=== PATIENT | male | born 1990 | race Caucasian/White ===

== ENCOUNTER 2024-06-03 22:10 | Emergency (ER) | payer SELFPAY ==
[2024-06-03 22:14] VITALS: BP 158/105; PULSE 87; RESP 16; TEMP 36.7; O2SAT 98; BMI 20.7
--- NOTE | 2024-06-03 22:49 | XRR_ITS ---
PROCEDURE INFORMATION: Exam: XR Left Hand Exam date and time: 06/03/2024 10:54 PM Age: 34 years old Clinical indication: Injury or trauma; Other: Skill saw cut; Laceration; Hand and finger; Left; Ring finger and little finger; Additional info: Trauma/lac TECHNIQUE: Imaging protocol: Radiologic exam of the left hand. Views: 3 or more views. COMPARISON: No relevant prior studies available. FINDINGS: Bones/joints: Comminuted fracture of the distal phalanx of the 4th digit. Soft tissues: Soft tissue swelling of the tip of the 4th digit. 5 mm circular radiopaque foreign bodies overlies the ventral soft tissues of the hand near the 3/4 distal metacarpals. XR/XR hand LT min 3V* [id number] IMPRESSION: Comminuted fracture of the distal phalanx of the 4th digit.
[2024-06-03 23:19] VITALS: RESP 18
[2024-06-03] MEDS: tetanus-dipt-pertussis 0.5 mL SDV IM (23:19)
[2024-06-03] MEDS: morphine 4 mg/mL SDV 1 mL IM (23:19)
[2024-06-04] MEDS: sulfamethoxazole-trimeth DS 160-800 mg Tablet 1 TAB PO (00:31)
[2024-06-04] MEDS: lidocaine 2% INJ 20 mL INJECTION (00:35)
--- NOTE | 2024-06-04 00:52 | W.ED.WOUNDLC ---
HPI - Wound/Laceration General: Chief Complaint: Wound/Laceration Stated Complaint: left hand lac Time Seen by Provider: 06/03/24 22:28 Source: patient Mode of arrival: ambulatory Limitations: no limitations History of Present Illness: Patient is a 34-year-old male who presents to the emergency department complaining of a laceration to his left ring finger. This occurred while using a skill saw, states his tetanus is not up-to-date. He arrives with compression drainage, however upon removal it continues to bleed. No foreign body, but he states he believes he broke his finger. No distal sensory changes reported and he still has movement of that finger. No other injuries. Onset (ago): minute(s) Extremity Location: Left: hand (Ring finger) Place: home Patient tetanus UTD: No Context: accidental Associated symptoms: Reports no associated symptoms; Denies chills, fever(s), nausea or vomiting Treatments prior to arrival: bandage Review of Systems General: Reports: 10 or more systems reviewed and unremarkable except in HPI and below Const: Denies: fever(s) or chills Card: Denies: chest pain Resp: Denies: dyspnea GI: Denies: abdominal pain, nausea, vomiting or diarrhea Musc: Reports: extremity pain (Left ring finger); Denies: joint pain Skin/Breast: Reports: skin pain, skin tenderness and new lesions; Denies: rash Neuro: Denies: headache(s) Physical Exam Const: COMMON NORMALS: average body habitus, patient oriented x3, no limitations, healthy appearing, alert and well nourished GENERAL APPEARANCE: in distress (From pain) and anxious HENMT: COMMON NORMALS: normocephalic and atraumatic HEAD & SCALP: normocephalic and atraumatic Neck/C-Spine: COMMON NORMALS: full ROM, no lymphadenopathy, supple and no meningeal signs Resp: COMMON NORMALS: normal respiratory effort, No use of accessory muscles and clear to auscultation bilaterally AUSCULTATION: clear to auscultation bilaterally Cardio: COMMON NORMALS: regular rate and regular rhythm RATE: regular rate RHYTHM: regular rhythm Extremity: COMMON NORMALS: full ROM NARRATIVE EXTREMITY EXAM: Tenderness to palpation of the distal left ring finger, obvious mutilation with active bleeding. He is still able to move the extremity and does have intact sensations. Neuro: COMMON NORMALS: patient oriented x3 SENSORIUM/ORIENTATION: Yes alert MENINGEAL SIGNS: Yes no meningeal signs Skin: COMMON NORMALS: turgor normal NARRATIVE SKIN EXAM: Circumferential laceration to distal left ring finger that does involve the nailbed, active bleeding at this time with no evidence of contamination or foreign body GENERAL SKIN EXAM: turgor normal Procedures Laceration Laceration 1: Site: hand Side (If applicable): left Size (cm): 6 Description: irregular Depth: simple, single layer Local Anesthetic: lidocaine 2% Amount of anesthesia used (mL): 8 Pre-repair: wound explored, irrigated extensively and wound margins revised Skin layer closed with: other (Prolene) Size (cm): 5-0 Number of sutures: 6 Technique: simple, interrupted Nerve Block Nerve Block 1: Local Anesthetic: lidocaine 2% Amount of anesthesia used (mL): 8 Side: left Nerve Blocks: digital Procedure Successful: Yes Patient Tolerated Procedure: well Complications: none Course Vital Signs: Vital signs: Vital Signs Temperature 98.0 F 06/03/24 22:14 Pulse Rate 87 06/03/24 22:14 Respiratory Rate 18 06/03/24 23:19 Blood Pressure 158/105 06/03/24 22:14 Pulse Oximetry 98 06/03/24 22:14 Oxygen Delivery Me thod Room Air 06/03/24 22:14 MDM - Wound/Laceration Medical Decision Making Patient presented with traumatic laceration to distal left ring finger. Anxious on arrival and did appear to be in distress from the pain, and there was obvious medialization of the distal left finger. X-ray did show a comminuted fracture, and he will be referred to orthopedics accordingly. In addition he is started on antibiotics at this time and updated his tetanus. He is given morphine for pain. His laceration was repaired as best as possible, realigning the tip of the finger towards the nailbed. There is still an intact nail though severed transversely, and this distal part will be pushed off over time. He will be splinted at this time and started on prescription of antibiotics. He is informed of signs and symptoms that would warrant return to the emergency department proper wound care as discussed. All other questions and concerns addressed at this time. Care of patient discussed with Dr. Llanes. Lab Data Radiology Impressions Hand X-Ray 06/03/24 22:49 IMPRESSION: Comminuted fracture of the distal phalanx of the 4th digit. All radiology interpretation(s) finalized by discharge Discharge Plan Discharge Patient Disposition: Home Clinical Impression: Laceration of left ring finger, Fracture of distal phalanx of left ring finger Condition: Stable Prescriptions: New Bactrim DS 800-160 mg tablet 1 tab PO BID 7 Days Qty: 14 0RF hydrocodone-acetaminophen 7.5-325 mg tablet 1 tab PO Q8H PRN (Reason: pain) Qty: 15 0RF Discharge Orders: Discharge ED (Routine); Ordered 06/04/24 Ordered By: Matthias Hicks Discharge Diet: Usual diet Discharge Activity: Limit activity as instructed Patient Instructions: Laceration (ED), Finger Fracture (ED) Activity Restrictions/Additional Instructions: Sutures out in 7-10 days. Please follow-up with orthopedics as discussed. Ice as needed. Take pain medications as prescribed. Also take antibiotics as prescribed. Do not soak the wound. Nail will fall off naturally. Please return with any new or concerning symptoms you may have, including any signs of infection. Coding Level of Care Code ED Monitoring Specialist for Susanna Clark
--- NOTE | 2024-06-04 07:02 | DCPLANNER ---
messaged ortho for er f/u
== END 2024-06-04 00:36 | disposition home or self-care (01) ==
PROVIDERS: Emergency Provider Physician Assistant
DX: S62.635A Displaced fracture of distal phalanx of left ring finger, initial encounter for closed fracture (principal); S61.215A Laceration without foreign body of left ring finger without damage to nail, initial encounter; W27.0XXA Contact with workbench tool, initial encounter; Z23 Encounter for immunization
CPT/HCPCS: 12002; 73130; 90715; 96372; 99284; J2270